=== PATIENT | male | born 1940 | race Two or more races ===

== ENCOUNTER 2017-08-19 10:23 | Emergency (ER) | payer OTHER ==
[~2017-08-19] VITALS: Ht 182.9 cm; Wt 73.7 kg
[2017-08-19 10:24] VITALS: BP 122/76
[2017-08-19 11:34] LABS: MICROSCOPIC INDICATED
[2017-08-19 12:01] LABS: CULTURE INDICATED? NO
== END 2017-08-19 12:09 | disposition home or self-care (01) ==
LOC: ED 12:06
DX: R30.0 Dysuria (principal); I10 Essential (primary) hypertension
CPT/HCPCS: 81001; 99283